=== PATIENT | female | born 1995 ===

== ENCOUNTER → 2018-02-20 | Day surgery (SDC) | payer OTHER ==
[~2018-02-20] MED LIST: Iohexol 350mgl/ml 50 ML ONE; Lidocaine 2 Grams in D5W 2,000 MG/500 ML BAG IV ONE; Lidocaine 2% PF (10 ml) Amp ONE; Midazolam 2 MG/2 ML VIAL ONE; Nitroglycerin 50mg in D5W 50 MG/250 ML BOTTLE IV ONE; Sodium Chloride 0.9% 1,000 ML IV SCH; Verapamil 2 ML ONE
[2018-02-20 11:57] VITALS: BMI 22.6
[2018-02-20 13:22] LABS: VENOUS BLOOD GAS BASE EXCESS -9.6 mmol/L (0.0-2.0); VENOUS BLOOD GAS PCO2 27 mmHg (40-60); VENOUS BLOOD GAS PO2 32 mm/Hg (30-55); VENOUS BLOOD PH 7.34 (7.32-7.43)
[2018-02-20 13:27] LABS: VENOUS BLOOD GAS BASE EXCESS -10.1 mmol/L (0.0-2.0); VENOUS BLOOD GAS PCO2 26 mmHg (40-60); VENOUS BLOOD GAS PO2 31 mm/Hg (30-55); VENOUS BLOOD PH 7.34 (7.32-7.43)
[2018-02-20 13:29] LABS: VENOUS BLOOD GAS BASE EXCESS -10.1 mmol/L (0.0-2.0); VENOUS BLOOD GAS PCO2 27 mmHg (40-60); VENOUS BLOOD GAS PO2 41 mm/Hg (30-55); VENOUS BLOOD PH 7.33 (7.32-7.43)
[2018-02-20 13:36] LABS: VENOUS BLOOD GAS BASE EXCESS -9.6 mmol/L (0.0-2.0); VENOUS BLOOD GAS PCO2 28 mmHg (40-60); VENOUS BLOOD GAS PO2 35 mm/Hg (30-55); VENOUS BLOOD PH 7.33 (7.32-7.43)
[2018-02-20 13:39] LABS: VENOUS BLOOD GAS BASE EXCESS -8.2 mmol/L (0.0-2.0); VENOUS BLOOD GAS PCO2 28 mmHg (40-60); VENOUS BLOOD GAS PO2 35 mm/Hg (30-55); VENOUS BLOOD PH 7.36 (7.32-7.43)
[2018-02-20 13:43] LABS: VENOUS BLOOD GAS BASE EXCESS -7.5 mmol/L (0.0-2.0); VENOUS BLOOD GAS PCO2 25 mmHg (40-60); VENOUS BLOOD GAS PO2 66 mm/Hg (30-55)
[2018-02-20 13:46] LABS: ARTERIAL BLOOD GAS HCO3 18.6 mmol/L (21-28); ARTERIAL BLOOD GAS HEMOGLOBIN 10.2 g/dL (11.7-17.4); ARTERIAL BLOOD GAS O2 SAT 95.9 % (95-98); ARTERIAL BLOOD GAS PCO2 25 mm/Hg (35-45); ARTERIAL BLOOD GAS PO2 68 mm/Hg (80-100); ARTERIAL BLOOD GAS TCO2 16.3 mmol/L (22-28)
--- NOTE | 2018-02-21 01:14 | CARDCATH ---
PROCEDURE DATE: 02/20/2018 PROCEDURES: 1. Left heart catheterization. 2. Right heart catheterization. 3. Coronary angiogram. CLINICAL INDICATIONS: 1. Exertional dyspnea. 2. Pulmonary hypertension. 3. Cardiomegaly. 4. Dilated right heart. REFERRING PHYSICIAN: Ajit Miller MD PERFORMING PHYSICIAN: Marbin Buchanan MD DESCRIPTION OF PROCEDURE: After informed consent, the patient was prepped and draped in the usual sterile fashion. Lidocaine 2% was given in the right groin for local anesthesia. Using micropuncture technique, a 6-[place] sheath was introduced into right common femoral artery. A 7-[place] sheath was introduced into right common femoral vein. A JL 3.5 diagnostic catheter engaged into left main coronary artery. Contrast injected and left coronary angiogram was done. Then, a JR 4 diagnostic catheter engaged into right coronary artery. Contrast injected and right coronary angiogram was done. A pigtail catheter inserted into left ventricle across the aortic valve. EDP was measured. Contrast injected and LV angiogram was done. Then, the catheter was pulled back, gradient across aortic valve was measured. A [place] catheter inserted via right common femoral vein. Right heart pressure measured. Saturations of the various levels were obtained. The patient tolerated the procedure well. Postprocedure, sheath was pulled manually with excellent hemostasis. FINDINGS OF THE LEFT HEART CATHETERIZATION: 1. Left main coronary artery is patent. 2. LAD and diagonal branches are patent. 3. Left circumflex and obtuse marginal branches are patent. 4. Right coronary artery is dominant and patent. 5. LV ejection fraction is approximately 60%. Normal wall motion. EDP is 9. No gradient across aortic valve. Systemic blood pressure is 104/61, mean of 77. FINDINGS OF THE RIGHT HEART CATHETERIZATION: Pressures: RA 9, RV 86/8, PCW 3, PA 92/40, mean of 57. Cardiac output 3.92 by thermodilution method. Cardiac index is 2.52. Saturations on room air, RA 55.6, IVC 64.6%, SVC 63.2%, RV 58.3%, PA 73.7%, aorta 95.9%. CONCLUSION: 1. Normal coronaries. 2. Normal left ventricular systolic function. 3. Low normal end-diastolic pressure. 4. Severe pulmonary hypertension. 5. There is a step-off from right ventricle to pulmonary artery suggestive of patent ductus arteriosus. Recommend AG to corroborate further findings. Marbin Buchanan MD
[2018-02-22 17:17] VITALS: RESP 16; O2SAT 100
== END | disposition home or self-care (01) ==
LOC: C.CATHLAB 10:04
PROVIDERS: ATTEND Internal Medicine Interventional Cardiology
DX: I27.20 Pulmonary hypertension, unspecified (principal); R06.00 Dyspnea, unspecified
CPT/HCPCS: 82803; 84703; 93460; 99152; 99153; C1714; C1729; C1769; C1887; C1893; C1894; J1644; J2250; J3010; J7030; Q9967